=== PATIENT | female | born 1960 | race Caucasian/White ===

== ENCOUNTER → 2016-12-04 | Outpatient (CLI) | payer BC ==
[~2016-12-04] MED LIST: LIDOCAINE 1%/EPINEPHRINE INJ 20 ML VIAL ONE; LIDOCAINE 2% INJ (20 MG/ML) 20 ML MDV ONE
--- NOTE | 2016-12-06 15:03 | WOMENS IMAGING REPORT ---
EXAM DESCRIPTION: STEREO BREAST BX; RIGHT DIAGNOSTIC MAMMO W/CAD; U/S BREAST UNILAT LIMITED; LEFT DI G DX MAMMO NO CHG COMPLETED DATE/TIME: 12/04/2016 1:52 pm; 12/04/2016 3:42 pm; 12/04/2016 2:06 pm; 12/04/2016 1:04 pm REASON FOR STUDY: OTHER ABNORMAL AND INCONCLUSIVE FINDINGS ON DX IMAGING OF BREAST (R92.8); R92.8; P OST BIOPSY R92.8 OTH ABN AND INCONCLUSIVE FINDINGS ON DX IMAGING OF GE[place] COMPARISON: Bilateral mammography 10/31/2016, bilateral breast ultrasound 10/31/2016 TECHNIQUE: Vacuum-assisted stereotactic-guided biopsy of the lesion in the left breast. Serial progr ess stereotactic and single digital images acquired. Post biopsy right breast diagnostic mammograms, including right craniocaudad, X CC, and 90 mediolate ral views. Patient had an ultrasound-guided biopsy performed at Dr. Nuno's office Left far upper outer quadrant breast ultrasound poles also performed today, to evaluate a questionabl e nodule on outside mammograms 10/31/2016. PROCEDURE: Patient initially presented with a palpable mass the right breast which biopsied under ul trasound by Dr. Nuno. Today's right breast diagnostic mammograms demonstrate a spiculated solid m ass with microcalcifications measuring at least 2 cm in diameter at the edge of the film. There is n ipple retraction. This mass in the medial right breast is a biopsy proven malignancy. There is a bi opsy clip in the mass. No other worrisome findings right breast. Ultrasound of the far left upper outer quadrant was performed today. No discrete cystic or solid les ions. No worrisome acoustic absorption. No focal sonographic findings. Mammograms 10/31/2016 demonstrated faint calcifications in the left deep central breast. To complete the workup for these calcifications, Dr. Nuno requested a stereotactic biopsy today. The procedure was discussed with the patient, including possible complications such as bleeding, in fection, nondiagnostic sample or possible findings such as atypical ductal hyperplasia which would r equire additional surgery. Possible clip placement was explained. The patient agreed to the proced ure. The patient was placed prone on the stereotactic table. The lesion in the breast was localized ster eotactically. The skin of the breast was prepped in sterile fashion. Superficial and deep local an esthesia was provided. A small incision was made in the skin and the biopsy probe was advanced to t he target. Using the vacuum-assisted core biopsy device, multiple core specimens were obtained. Continuous low dose infusion of local anesthesia was used during the procedure. A specimen radiograph was obtained. The radiograph demonstrated calcifications of concern in the bio psy tissue. Using [id number]-[id number] technique a barrel clip was deployed at the biopsy site. Mammographic image confirmed presence of the clip. The probe was then removed and hemostasis obtained with manua l compression. A compression bandage was applied. Postoperative instructions were explained to th e patient. POST-PROCEDURE TWO VIEW DIGITAL MAMMOGRAM: An additional two view mammogram was recorded in the [facility] mammographic suite. Marker clip is at the biopsy site. LIMITATIONS: None. FINDINGS: PATHOLOGY: Fibrocystic change. No ductal epithelial hyperplasia, in situ, or invasive car cinoma identified. CONCORDANT: Yes. POST PROCEDURE MAMMOGRAMS FOR MARKER PLACEMENT: Yes IMPRESSION: SUCCESSFUL STEREOTACTIC-GUIDED BIOPSY OF THE LESION IN THE LEFT BREAST. BIOPSY RESULT S ARE CONCORDANT WITH IMAGING FINDINGS. FOLLOW-UP: PATIENT WILL FOLLOW-UP WITH DR. NUNO FOR BIOPSY PROVEN MALIGNANCY IN THE RIGHT BREAST. NOTIFICATION: THE PATIENT HAS BEEN PERSONALLY NOTIFIED OF THE RESULTS BY THE BREAST INTERVENTIONAL TE AM. RESULTS WERE DISCUSSED WITH THE PATIENT, 1400 HOURS 12/06/2016. DR. NUNO WAS ALSO NOTIFIED COMMENT: Patient medication list reviewed: Yes- Quality ID# [id number]:Eligible professional attests to doc umenting in the medical record they obtained, updated, or reviewed the patient's current medications. TECHNICAL DOCUMENTATION: JOB ID: [id number] [employer]- All Rights Reserved
== END ==
LOC: RAD 10:32 → EDSTATUS 13:23 → WI 14:09
PROVIDERS: ATTEND Surgery
PROC: 0HBU3ZX Excision of Left Breast, Percutaneous Approach, Diagnostic (ICD-10-PCS; principal; 2016-12-04)
DX: R92.8 Other abnormal and inconclusive findings on diagnostic imaging of breast (principal); N60.32 Fibrosclerosis of left breast; R92.0 Mammographic microcalcification found on diagnostic imaging of breast
CPT/HCPCS: 88305 ×2; 88342; 19081; 76642; J3490; G0206

== ENCOUNTER → 2017-11-24 | Outpatient (CLI) | payer BC ==
--- NOTE | 2017-11-25 12:35 | WOMENS IMAGING REPORT ---
EXAM DESCRIPTION: 3D SCREENING MAMMO LEFT COMPLETED DATE/TIME: 11/24/2017 10:44 am REASON FOR STUDY: SCREENING MAMMO; Z12.31 Z12.31 ENCNTR SCREEN MAMMOGRAM FOR MALIGNANT NEOPLASM OF [place] COMPARISON: Multiple since 10/31/2016 TECHNIQUE: Standard craniocaudal and mediolateral oblique views of the left breast recorded using di gital acquisition and breast tomosynthesis. Additional "push-back" craniocaudal and mediolateral obl ique images acquired. Post right mastectomy in October 2017 LIMITATIONS: None. FINDINGS: IMPLANT: Subpectoral implant. BREAST: Left Findings present which are benign by mammographic criteria. No suspicious masses, calcifications or a rchitectural distortion. Read with the assistance of CAD. .[facility] - R2 Cenova Version 1.3 .[facility] - R2 Cenova Version 1.3 .[facility] - R2 Cenova Version 2.4 .[facility] [place] - R2 Cenova Version 2.4 .[facility] - R2 Super[employer] Education Version 9.2 Benign mammographic findings may include one or more of the following: Smooth masses, popcorn/rim/co arse calcifications, asymmetries, post-procedure changes, and lesions with long-standing stability. IMPRESSION: NORMAL MAMMOGRAM. BIRADS 2. BREAST DENSITY: b. There are scattered areas of fibroglandular density. BIRAD: 2 Benign Finding(s) RECOMMENDATION: RECOMMENDATION: ROUTINE SCREENING. Please continue left breast screening mammography/tomosynthesis in November 2018 COMMENT: The patient has been notified of the results by letter per SA requirements. Additional no tification policies are in place for contacting patient with suspicious or incomplete findings. Quality ID #[id number]: The [employer] recommends an annual screening mammogram for women aged 40 years or over. This facility utilizes a reminder system to ensure that all patients receive reminder letters, and/or direct phone calls for appointments. This includes reminders for routine scr eening mammograms, diagnostic mammograms, or other Breast Imaging Interventions when appropriate. Th is patient will be placed in the appropriate reminder system. The [employer] (ACR) has developed recommendations for screening MRI of the breast s in certain patient populations, to be used in conjunction with mammography. Breast MRI surveillance may be appropriate for women with more than 20% lifetime risk of developing breast cancer as determi peter by genetic testing, significant family history of the disease, or history of mantle radiation for Hodgkins Disease. ACR Practice Guidelines 2008. DBT Technology DBT is a type of tomographic mammography. With conventional mammography, overlapping breast tissue ma y make lesions difficult to detect, even with good compression. DBT uses an x-ray tube that rotates a round the breast, taking images at different angles. These images are then combined to create thin sl ices of the breast that the radiologist can view as a 3D reconstruction. The [employer] unit can perform full-field digital mammograms (2D imaging); or DBT (3D imaging); or both, in a combination mode that quickly performs both the mammogram and the tomosynthesis scan while the breast is still compressed. PQRS 6045F: Fluoroscopic imaging is not utilized for breast tomosynthesis. TECHNICAL DOCUMENTATION: FINDING NUMBER: (1) ASSESSMENT: (1) JOB ID: [id number] [employer]- All Rights Reserved Reading location - IP/workstation name: [email or web address]
== END ==
LOC: WI 10:26
PROVIDERS: ATTEND Surgery
DX: Z12.31 Encounter for screening mammogram for malignant neoplasm of breast (principal)

== ENCOUNTER → 2018-11-25 | Outpatient (CLI) | payer BC ==
--- NOTE | 2018-11-25 13:51 | WOMENS IMAGING REPORT ---
EXAM DESCRIPTION: 3D SCREENING MAMMO LEFT COMPLETED DATE/TIME: 11/25/2018 10:18 am REASON FOR STUDY: Z12.31 ROUTINE 3D BILATERAL SCREENING Z12.31 ENCNTR SCREEN MAMMOGRAM FOR MALIGNAN T NEOPLASM OF [place] COMPARISON: 2016, 2017 EXAM PARAMETERS: Standard craniocaudal and mediolateral oblique views of the breast recorded using d igital acquisition and breast tomosynthesis. Additional "push-back" craniocaudal and mediolateral ob lique images acquired. Read with the assistance of CAD. .[facility] - R2 Injection Operator Version 9.2 LIMITATIONS: None. FINDINGS: IMPLANT: Subpectoral implant. BREAST LATERALITY: left Findings present which are benign by mammographic criteria. No suspicious masses, calcifications or a rchitectural distortion. Benign mammographic findings may include one or more of the following: Smooth masses, popcorn/rim/co arse calcifications, asymmetries, post-procedure changes, and lesions with long-standing stability. IMPRESSION: ASSESSMENT: BENIGN FINDINGS. BIRADS 2. BREAST DENSITY: b. There are scattered areas of fibroglandular density. BIRAD: 2 Benign Finding(s) RECOMMENDATION: RECOMMENDATION: ROUTINE SCREENING. COMMENT: The patient has been notified of the results by letter per SA requirements. Additional no tification policies are in place for contacting patient with suspicious or incomplete findings. Quality ID #225: The [employer] recommends an annual screening mammogram for women aged 40 years or over. This facility utilizes a reminder system to ensure that all patients receive reminder letters, and/or direct phone calls for appointments. This includes reminders for routine scr eening mammograms, diagnostic mammograms, or other Breast Imaging Interventions when appropriate. Th is patient will be placed in the appropriate reminder system. TECHNICAL DOCUMENTATION: FINDING NUMBER: (1) ASSESSMENT: (1) JOB ID: [id number] [employer]- All Rights Reserved Reading location - IP/workstation name: [email or web address]
== END ==
LOC: WI 09:54
PROVIDERS: ATTEND Surgery
DX: Z12.31 Encounter for screening mammogram for malignant neoplasm of breast (principal)

== ENCOUNTER → 2019-12-27 | Outpatient (CLI) | payer BC ==
--- NOTE | 2019-12-27 16:53 | WOMENS IMAGING REPORT ---
EXAM DESCRIPTION: 3D SCREENING MAMMO LEFT IMAGES COMPLETED DATE/TIME: 12/27/2019 10:59 am REASON FOR STUDY: Z12.31 ENCOUNTER FOR SCREENING MAMMOGRAM FOR MALIGNANT NEOPLASM OF BREAST Z12.31 ENCNTR SCREEN MAMMOGRAM FOR MALIGNANT NEOPLASM OF [place] COMPARISON: None. EXAM PARAMETERS: Standard craniocaudal and mediolateral oblique views of the breast recorded using d igital acquisition and breast tomosynthesis. Read with the assistance of CAD. .[facility] - [employer] Teacher Version 9.2 LIMITATIONS: None. FINDINGS: BREAST LATERALITY: left No suspicious masses, suspicious calcifications or architectural distortion. No areas of concern. Le ft subpectoral implant is stable and mammographically intact. IMPRESSION: NEGATIVE MAMMOGRAM. BIRADS 1. BREAST DENSITY: b. There are scattered areas of fibroglandular density. BIRAD: ASSESSMENT: 1 Negative RECOMMENDATION: RECOMMENDATION: ROUTINE SCREENING. COMMENT: The patient has been notified of the results by letter per MQSA requirements. Additional no tification policies are in place for contacting patient with suspicious or incomplete findings. Quality ID #[id number]: The [employer] recommends an annual screening mammogram for women aged 40 years or over. This facility utilizes a reminder system to ensure that all patients receive reminder letters, and/or direct phone calls for appointments. This includes reminders for routine scr eening mammograms, diagnostic mammograms, or other Breast Imaging Interventions when appropriate. Th is patient will be placed in the appropriate reminder system. TECHNICAL DOCUMENTATION: FINDING NUMBER: (1) ASSESSMENT: (1) JOB ID: [id number] [employer]- All Rights Reserved Reading location - IP/workstation name: [email or web address]
== END ==
LOC: WI 11:40
PROVIDERS: ATTEND Surgery
DX: Z12.31 Encounter for screening mammogram for malignant neoplasm of breast (principal)